=== PATIENT | male | born 1960 | race African-American/Black ===

== ENCOUNTER 2018-10-08 08:22 | Emergency (ER) | payer BC, MEDICAID, OTHER, SELFPAY ==
[~2018-10-08] VITALS: Ht 175.3 cm; Wt 80.5 kg
--- NOTE | 2018-10-08 08:50 | NUR ---
PT TO ROOM FROM LOBBY, UPRIGHT LIMPING GAIT. PT WITH HX OF LEFT HIP INJURY 1997
[2018-10-08 08:59] VITALS: BP 178/102
[2018-10-08] MEDS ORDERED: [UNRECOGNIZED DRUG - OTHER] PO (08:59)
[2018-10-08] MEDS ORDERED: CLON0.1T22 PO (08:59)
[2018-10-08] MEDS ORDERED: ROSU10TA2 PO (08:59)
[2018-10-08] MEDS ORDERED: LISI-170 PO (08:59)
--- NOTE | 2018-10-08 09:01 | NUR ---
DR TURNER AT BEDSIDE. PT W/ ONSET OF RIGHT SIDE FACIAL DROOP AND UNABLE TO CLOSE RIGHT EYE. 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 PT ASSESSMENT REVIEWED, AND QUESTIONS ORDERS.
--- NOTE | 2018-10-08 09:11 | NUR ---
Patient/Caregiver given discharge instructions and they have confirmed that they understand the instructions. Patient ambulatory with steady gait. PT WILL TAKE HIS BP MEDICATION WHEN HE GETS HOME
== END 2018-10-08 09:17 ==
LOC: ED 09:11
DX: G51.0 Bell's palsy (principal)
CPT/HCPCS: 99283